=== PATIENT | male | born 1980 | race African-American/Black ===

== ENCOUNTER 2016-09-02 08:42 | Emergency (ER) | payer OTHER ==
[~2016-09-02 08:42] MED LIST: MOBIC PO; SKELAXIN PO
== END 2016-09-02 10:00 | disposition home or self-care (01) ==
LOC: CFTX 08:42 → CED 08:42 → CFTX 09:00
DX: J02.9 Acute pharyngitis, unspecified (principal); J06.9 Acute upper respiratory infection, unspecified; F17.210 Nicotine dependence, cigarettes, uncomplicated
CPT/HCPCS: 87651; 99283

== ENCOUNTER 2016-11-03 18:19 | Emergency (ER) | payer OTHER | END 2016-11-04 00:17 | disposition home or self-care (01) | LOC: CED 18:19 | DX: K64.4 Residual hemorrhoidal skin tags (principal); K59.00 Constipation, unspecified; I10 Essential (primary) hypertension; F17.200 Nicotine dependence, unspecified, uncomplicated | CPT/HCPCS: 99283 ==